=== PATIENT | male | born 1975 | race Caucasian/White ===

== ENCOUNTER 2017-02-13 12:22 | Emergency (ER) | payer BC, OTHER ==
--- NOTE | 2017-02-13 12:42 | ERNOTE ---
Psychological HPI - General Chief Complaint: Anxiety Source: Reports: patient Exam Limitations: Reports: no limitations - Immun/Allergies/Home Medications Allergies/Adverse Reactions: Allergies No Known Allergies Allergy (Verified 02/13/17 12:31) Home Medications: HOME MEDICATIONS busPIRone HCL [Buspar] 10 mg PO QPM #20 tablet 02/13/17 [Last Taken Unknown] - History of Present Illness Narrative: Has had alot of anxiety and feels short of breath, DENIES any chest pains. He feels more anxious than anything else. These symptoms have been going on for two weeks and he has not seen his PCP for this. He has anxiety and issues with his daughter. Denies cough or chest pains Time Seen by Provider: 02/13/17 12:36 Review of Systems - Review of Systems Constitutional: Present: no symptoms reported EYE: Present: no symptoms reported ENT: Present: no symptoms reported Respiratory: Present: shortness of breath - occasionally , with stress, none now Cardiology: Present: no symptoms reported Gastrointestinal/Abdominal: Present: no symptoms reported Genitourinary: Present: no symptoms reported Musculoskeletal: Present: no symptoms reported Skin: Present: no symptoms reported - Patient's Past Medical History Patient History - Medical: No pertinent hx Patient History - Cardiac/Respiratory: Asthma Patient History - Cancer: No Hx of Cancer Patient History - Surgical Procedures: No surgical history Patient History - Other: None - Social History Living Situations: home Psych History: Hx of Anxiety - Immunizations Immunizations Up to Date: Yes Hx Pneumococcal Vaccination: No History of Influenza Vaccine: No Physical Exam - Physical Exam General Appearance: Present: wd/wn, alert, no apparent distress Ears, Nose, Throat: Present: normal ENT inspection Neck: Present: normal inspection Respiratory: Present: no respiratory distress, normal breath sounds, no accessory muscle use, chest nontender, lungs clear Cardiovascular/Chest: Present: regular rate, rhythm, no murmur, normal peripheral pulses ED Progress - Vital Signs Patient's Vital Signs:: I have reviewed the patient's vital signs. Vital Signs: Vital Signs 02/13/17 02/13/17 12:27 12:32 Temperature 36.4 C L Pulse Rate 92 86 Respiratory 18 15 Rate Blood Pressure 144/102 144/102 O2 Sat by Pulse 95 95 Oximetry - EKG EKG Comments: Normal - X-Ray X-Ray #1 X-Ray: chest - normal X-ray Comments: normal - Progress/Reassessment Chief Complaint: Anxiety Plan - Plan Plan: This patient's symptoms are mostly due to anxiety he feels anxious and he does not have time to go see his primary care doctor due to his work schedule. He absolutely has no chest pain shortness of breath dizziness diaphoresis or any symptoms of heart disease. Wrist x-ray and EKG are completely normal and symptoms have been going on for 2 weeks. We'll go ahead and treat the patient with the BuSpar for anxiety patient will be kept off for 48 hours to go see his primary care doctor is able for discharge Departure Clinical Impression: Anxiety - Departure Disposition: Home self-care Condition: Good Instructions: Panic Attacks, [id number] Referrals: Addison Torres MD [Primary Care Provider] - Prescriptions: busPIRone HCL [Buspar] 10 mg PO QPM #20 tablet
--- OUTSIDE RECORDS SUMMARY | 2017-02-13 12:47 | XMS REPORT | Continuity of Care Document ---
:1975 Author Organization [facility] Address [place] [address] Care Team Providers Name Role Phone Provider, None Per Patient Primary Care Provider Unavailable Source Comments This disclosure is being made pursuant to the [employer] program and maynot contain all information available regarding this patient.[facility] Active Allergies and Adverse Reactions No Known Allergies Current Medications Be aware that medications may not be up to date as of this document. Alwaysverify current medications with the patient. Prescription Sig. Disp. Refills Start Date End Date Status acetaminophen (TYLENOL) Take 1,000 mg by Active 500 MG tablet mouth every 4 (four) hours as needed. Active Problems Not on file Immunizations Name Dates Previously Given Next Due Tdap 09/17/2012 Social History Tobacco Use Types Packs/Day Years Used Date Former Smoker Last Filed Vital Signs Vital Sign Reading Time Taken Blood Pressure 136/72 01/29/2013 9:03 AM CDT Pulse 78 01/29/2013 9:03 AM CDT Temperature 36.3 C (97.4 F) 01/29/2013 9:03 AM CDT Respiratory Rate 18 01/29/2013 9:03 AM CDT Height 1.9 m (6' 2.8") 01/29/2013 9:03 AM CDT Weight 114.35 kg (252 lb 1.5 oz) 01/29/2013 9:03 AM CDT Body Mass Index 31.68 01/29/2013 9:03 AM CDT Oxygen Saturation 99% 09/17/2012 2:20 AM [employer] Plan of Care Health Maintenance Due Date Last Done Comments Retired-INFLUENZA VACCINE 04/20/2016 Tetanus/Pertussis (2 - Td) 09/17/2022 09/17/2012 Results from Last 3 Months Not on file
[2017-02-13 13:10] VITALS: BP 147/94
== END 2017-02-13 13:00 | disposition home or self-care (01) ==
LOC: ER 12:22
DX: F41.9 Anxiety disorder, unspecified (principal)